=== PATIENT | male | born 1955 | race Caucasian/White ===

== ENCOUNTER 2017-03-16 05:34 | Day surgery (SDC) | payer MEDICARE, OTHER ==
[~2017-03-16] VITALS: Ht 180.3 cm; Wt 77.1 kg
[2017-03-16] VITALS (7 sets, daily range): BP systolic 112–145; BP diastolic 63–79
[~2017-03-16 05:34] MED LIST: AMLO10TA2 PO; ATOR40TA75 PO; CYCL10TA PO; DONETAB6 PO; GABA800T PO; LISI10TA4 PO; OMEP20CA3 PO; RANI150T PO; SERT-138 PO
[2017-03-16] MEDS ORDERED: LR 1,000 ML IV ONE (06:00)
[2017-03-16] MEDS ORDERED: VECURONIUM BROMIDE 10 MG VIAL As Ordered ONE (07:07)
[2017-03-16] MEDS ORDERED: dexameTHASONE 4 MG/ML 1ML VIAL (J1100) As Ordered ONE (07:07)
[2017-03-16] MEDS ORDERED: SUCCINYLCHOLINE 100 MG/5 ML SYRINGE (J0330) As Ordered ONE (07:07)
[2017-03-16] MEDS ORDERED: LIDOCAINE 2% JELLY 30 ML As Ordered ONE (07:07)
[2017-03-16] MEDS ORDERED: ONDANSETRON 4MG/2ML VIAL (J2405) As Ordered ONE ×2 (07:07→11:56)
[2017-03-16] MEDS ORDERED: PROPOFOL 200 MG/20 ML VIAL As Ordered ONE ×2 (07:07→09:41)
[2017-03-16] MEDS ORDERED: LIDOCAINE 2% INJ 100 MG/5 ML SDV (FOR ANES.) As Ordered ONE (07:07)
[2017-03-16] MEDS ORDERED: MIDAZOLAM INJ 2 MG/2 ML VIAL (J2250) As Ordered ONE (07:08)
[2017-03-16] MEDS ORDERED: REMIFENTANIL 1MG 3ML VIAL As Ordered ONE ×2 (07:08→07:21)
[2017-03-16] MEDS ORDERED: fentaNYL 100 MCG/2 ML INJECTION (J3010) As Ordered ONE ×2 (07:08→12:06)
[2017-03-16] MEDS ORDERED: BACITRACIN PWD 50,000 UNITS VIAL As Ordered ONE (07:28)
[2017-03-16] MEDS ORDERED: THROMBIN SOLN 20,000 UNITS KIT As Ordered ONE (07:28)
[2017-03-16] MEDS ORDERED: BACITRACIN OINT 30GM As Ordered ONE (08:00)
[2017-03-16] MEDS ORDERED: BUPIVACAINE LIPOSOME/PF 1.3% 20 ML VIAL (13.3MG/ML)(EXPAREL) As Ordered ONE (08:00)
[2017-03-16] MEDS ORDERED: ceFAZolin 1GM INJ (J0690) As Ordered ONE (08:53)
--- NOTE | 2017-03-16 11:56 | REP ---
PARTIAL THORACIC SPINE SERIES: THREE VIEWS. HISTORY: Dorsal column stimulator lead placement. 25 seconds of fluoroscopy time is reported. FINDINGS: A sequence of three fluoroscopically-obtained last image hold spot radiographs of the thoracic spine document dorsal column stimulator placement. Signed by Bryan Polo MD 03/16/2017 03:23 P
[2017-03-16] MEDS ORDERED: METOCLOPRAMIDE INJ 10MG/2ML VIAL (J2765) As Ordered ONE (11:57)
[2017-03-16] MEDS: fentaNYL 100 MCG/2 ML INJECTION (J3010) IV PRN ×4 (12:12→12:41)
[2017-03-16] MEDS ORDERED: METOCLOPRAMIDE INJ 10MG/2ML VIAL (J2765) IV PRN (12:15)
[2017-03-16] MEDS ORDERED: MEPERIDINE INJ 25 MG/ML VIAL (J2175) IV PRN (12:15)
[2017-03-16] MEDS ORDERED: ONDANSETRON 4MG/2ML VIAL (J2405) IV PRN ×2 (12:15→12:45)
[2017-03-16] MEDS ORDERED: PERCOCET 5MG/325MG TAB PO PRN (12:15)
[2017-03-16] MEDS ORDERED: LR 1,000 ML IV SCH (12:15)
[2017-03-16] MEDS ORDERED: NORCO, ANEXSIA 5/325MG TABLET (HYDROcodone/ACETAMINOPHEN) As Ordered ONE (12:26)
[2017-03-16] MEDS: NORCO, ANEXSIA 5/325MG TABLET (HYDROcodone/ACETAMINOPHEN) PO PRN ×2 (12:30→19:53)
[2017-03-16] MEDS ORDERED: MORPHINE 2 MG/ML 1ML SYRINGE IV PRN (12:45)
[2017-03-16] MEDS ORDERED: ACETAMINOPHEN TAB 650MG DOSE (2X325MG) PO PRN (12:45)
[2017-03-16] MEDS ORDERED: KCL 20MEQ IN D5/0.45NS 1000ML 1,000 ML IV SCH (12:45)
[2017-03-16] MEDS ORDERED: NORCO, ANEXSIA 5/325MG TABLET (HYDROcodone/ACETAMINOPHEN) PO PRN (12:45)
[2017-03-16] MEDS: ATORVASTATIN 20 MG TAB PO SCH (13:58)
[2017-03-16] MEDS: SERTRALINE 100 MG TAB PO SCH (13:58)
[2017-03-16] MEDS: amLODIPine 10 MG TAB PO SCH (13:59)
[2017-03-16] MEDS: LISINOPRIL 10 MG TAB PO SCH (13:59)
[2017-03-16] MEDS: CEFUROXIME SODIUM 750 MG in D5W MINI-BAG PLUS 50 ML IV SCH ×2 (17:37→23:00)
[2017-03-16] MEDS: CARISOPRODOL 350 MG TAB PO SCH ×2 (17:37→22:47)
[2017-03-16] MEDS: GABAPENTIN 400 MG CAP PO SCH ×2 (17:38→22:47)
--- NOTE | 2017-03-16 19:26 | ROOPDOC ---
[facility] Report Of Operation Report of Operation DATE OF SURGERY: 03/09/2017 SURGEON: Dr. Cameron Gates ERGONOMIST: NEYDA Kan; PREOPERATIVE DIAGNOSIS: Intractable back pain. POSTOPERATIVE DIAGNOSIS: Same PROCEDURE PERFORMED: 1. Partial bilateral laminectomy T8-T9 2. Insertion of epidural spinal cord stimulator at T7. 3. Electronic programming and interrogation of battery analysis. 4. Subcutaneous implantation of pulse stimulator through separate incision. 5. lntraoperative use of C-arm fluoroscopy. 6. Electrophysiological monitoring of somatosensory and central motor evoked potentials of upper and lower extremities ANESTHESIA: GETA. ESTIMATED BLOOD LOSS: 100 cc. FINDINGS : Normal dura of thoracic spinal cord. DRAINS: 0 COMPLICATIONS: None. DISPOSITION: Stable to the PACU. INDICATIONS FOR THE PROCEDURE HISTORY: is a 62 y/o M with signs, symptoms and radiographic evidence of intractable back pain and no history of postlaminectomy syndrome. He has been treated with (physical therapy, multiple pain medications, nerve blocks) with failure to address the symptomatology and decided to undergo insertion of a spinal cord stimulator. He underwent successful trial placement by [facility] and wished to have a permanent SCS implanted. SURGICAL RISKS: The patient and her family were well apprised of all objectives, benefits, risks and potential complications of the procedure, including but not limited to : worsening of current status, the possible need for further procedures, the risk of infection, headaches, CSF leak, possible spinal nerve injury resulting in paralysis, infection, injury to major vessels causing hemorrhage, stroke, loss of language function, coma and even . No assurance was given whether symptoms would improve following the procedure. The surgery is technically difficult procedure and despite the significant discomfort for the patient and the best effort of the physician, the surgery may be unsuccessful or may need to be aborted. Informed consent was obtained and secured in the chart after the patient and family voiced understanding of these risks and decided to proceed with the operation. DESCRIPTION OF THE PROCEDURE The patient was transferred to the operating room. He was given preoperative prophylactic IV antibiotics. ANESTHESIA: The patient was sedated and intubated without difficulty by the anesthesia service. Eyes were taped shut after ointment was applied to prevent corneal abrasion. A Reyna Hugger was placed over the upper body to maintain control of core body temperature. The electrophysiology monitoring team inserted needles in their proper locations and baseline SSEPs and motor-evoked potentials were obtained. POSITIONING: The patient was turned prone on gel pads of Timur table. All pressure points were carefully padded. OPERATIVE TECHNIQUE: The patient was prepped and draped in the standard sterile fashion. The C-arm fluoroscopy was draped and brought in to the operative field and the T8-T9 was identified. The skin was subsequently opened sharply with a # 15 scalpel blade. Dissection was carried down superiorly and inferiorly in the midline to expose supraspinous ligament and laminas. The musculature was elevated subperiosteally to expose the facets bilaterally with PlasmaBlade electrocautery and Acharya elevator. Hemostasis was achieved. Self-retaining retractors were then inserted. Spinal processes resection and partial laminectomy of T8 and T9 levels were done. A ultrasound bone dissector BoneScalpel was used to remove T8 and T9 laminas. The ligamentum flavum was then easily removed. Epidural space was dissected with plastic dissector from doggyloot. Bleeding from epidural veins has been controlled Gelfoam packing soaked in thrombin. 32-contact surgical forceps fabricator has been inserted to the level of middle T7 vertebra into the epidural space without difficulty. Placement has been confirmed by C-arm fluoroscopy. The skin over the left flank an approximately 5 cm incision performed with a # 15 scalpel blade. A pocket was developed for placement of the battery pulse generator. Utilizing a sharp trocar, a plastic cannula was brought from the spinal incision down into the flank incision; left in place and the electrodes passed through. The electrodes were then connected to the battery pulse. At this point, the pulse generator sas programmer remote was brought near the operative field. The battery pulse generator was interrogated intraoperatively and programmed. The stimulator was set wiressly. The battery pulse generator was then secured to the fascia utilizing absorbable suture. In the spine incision, the electrodes were secured to the fascial edge silk suture as well. The fascial planes and the muscles were approximated utilizing 0 polyglactin synthetic absorbable suture Vicryl. The wound was irrigated copiously with antibiotic saline solution. The skin was re-approximated with interrupted 3-0 polyglactin synthetic absorbable suture Vicryl. The skin was then closed with Dermabond. The flank wound was also copiously irrigated with antibiotic saline solution and closed in layers utilizing 1-0 and 3-0 polyglactin synthetic absorbable suture Vicryl. The skin was then closed with Dermabond. A clean dry dressing was placed over both incisions and again utilizing the pulse generator sas programmer remote, verification was obtained at the end of the case to ensure adequate output reading from the newly placed device. All sponge counts, needle counts and instrument counts were correct at the end of the case times two. The electrophysiological monitoring remained stable from baseline through the end of the procedure. The patient tolerated the procedure well, without any complications and was transferred in stable condition to the recovery room. CAMERON GATES MD Mar 16, 2017 19:26
[2017-03-17] MEDS: NORCO, ANEXSIA 5/325MG TABLET (HYDROcodone/ACETAMINOPHEN) PO PRN ×2 (01:45→10:19)
[2017-03-17 02:00] VITALS: BP 110/58
[2017-03-17 06:00] VITALS: BP 118/63
[2017-03-17] MEDS: GABAPENTIN 400 MG CAP PO SCH (08:36)
[2017-03-17] MEDS: SERTRALINE 100 MG TAB PO SCH (08:37)
[2017-03-17] MEDS: CARISOPRODOL 350 MG TAB PO SCH (08:37)
[2017-03-17] MEDS: amLODIPine 10 MG TAB PO SCH (08:37)
[2017-03-17] MEDS: ATORVASTATIN 20 MG TAB PO SCH (08:37)
[2017-03-17 08:38] VITALS: BP 118/63
[2017-03-17] MEDS: LISINOPRIL 10 MG TAB PO SCH (08:38)
[2017-03-17] MEDS ORDERED: OMEPRAZOLE 20 MG CAP PO SCH (09:00)
[2017-03-17] MEDS ORDERED: DONEPEZIL 5 MG TAB PO SCH (09:00)
[2017-03-17] MEDS ORDERED: SOMA350T PO (09:19)
[2017-03-17] MEDS ORDERED: KEFL500C17 PO (09:22)
[2017-03-17] MEDS ORDERED: NORC1TAB4 PO (10:51)
--- NOTE | 2017-03-17 12:50 | IPN ---
DATE: 03/17/2017 SUBJECTIVE: Mr. Hart is day one status post placement of permanent dorsal column stimulator paddle lead. He states that he has some incisional discomfort. He states that the programming of the stimulator has been helping his low back and left leg pain. He denies any headache. No chest pain. No shortness of breath. No new symptoms. No bowel or bladder dysfunction. Overall, he states he feels well and is just sore from the surgery. On exam, no acute distress. Well-developed, well-nourished. Vital Signs: Blood pressure (BP) 118/63, heart rate 85, respiratory rate of 18, SPO2 is 96% on room air. He has good strength in his bilateral quads, hamstring, gastrocs and anterior tibialis, They are strong at 5/5. Good sensation in the lower extremities bilaterally. The mid thoracic incision has some slight serosanguineous drainage from the inferior portion, no erythema, no swelling, no signs of infection. The pulse generator incision on the left lower back iliac area is clean, dry, with no erythema, no discharge and no signs of infection. ASSESSMENT: Chronic low back pain, groin pain and left leg pain status post dorsal column stimulator placement. PLAN: The patient will be discharged home. He will followup with 's office in 2 weeks. Discharge medications of Soma 350 mg tablet one by mouth three times a day given and Keflex 1 gram every 12 hours for 7 days given. MTDD
== END 2017-03-17 11:21 | disposition home or self-care (01) ==
LOC: M SDC 05:34 → M MSPAV 13:34 → M SDC 03-17 11:21
PROVIDERS: ATTEND Neurological Surgery
DX: M54.5 Low back pain (principal); M47.896 Other spondylosis, lumbar region; I10 Essential (primary) hypertension; M79.605 Pain in left leg; E78.00 Pure hypercholesterolemia, unspecified; F41.9 Anxiety disorder, unspecified; M12.9 Arthropathy, unspecified; F32.9 Major depressive disorder, single episode, unspecified; K21.9 Gastro-esophageal reflux disease without esophagitis; G43.909 Migraine, unspecified, not intractable, without status migrainosus; R41.3 Other amnesia; G47.9 Sleep disorder, unspecified; Z79.899 Other long term (current) drug therapy; Z87.891 Personal history of nicotine dependence
CPT/HCPCS: 63655; 63685; 77002; C1767; C1820; J0330; J0690; J0697; J1100; J2250; J2405; J2765; J3010